=== PATIENT | female | born 1960 ===

== ENCOUNTER 2025-01-28 05:46 | Day surgery (SDC) | payer OTHER ==
[2025-01-21 12:06] LABS: HEMATOCRIT 43.3 % (36.0-45.00); HEMOGLOBIN 14.1 g/dL (12.0-15.00); MEAN CELL VOLUME 86.1 fL (80.00-100.00); MEAN CORPUSCULAR HGB CONC 32.6 g/dl (32.0-36.0); PH,URINE 7.5 (5.0-8.0); PLATELET COUNT 289 K/uL (150-450); RED BLOOD COUNT 5.03 M/uL (4.00-6.00); RED CELL DISTRIBUTION WIDTH 13.4 % (11.5-14.5); URINE APPEARANCE Clear; URINE BILIRRUBIN Negative (NEGATIVE); URINE BLOOD Negative; URINE COLOR Yellow; URINE GLUCOSE Negative (NEGATIVE); URINE KETONE Negative (NEGATIVE); URINE LEUKOCYTE Negative; URINE NITRATE Negative; URINE PROTEIN Negative (NEGATIVE); URINE UROBILINOGEN 0.2 E.U./dl
[2025-01-21 12:07] VITALS: BP 131/82
[2025-01-21 12:12] LABS: URINE BACTERIA 12.2 uL (0.0-1933); URINE RBC 6.4 uL (0.0-20.8); URINE WBC 2.4 uL (0.0-23.2)
[2025-01-21 12:32] LABS: URINE EPITHELIAL CELLS 0.7 uL (0.0-38.8)
[2025-01-21 13:00] LABS: INR 1.04; PARTIAL THROMBOPLASTIN TIME 29.9 SECONDS (22.0-34.0); PROTHROMBIN TIME 11.3 SECONDS (9.0-11.5)
[2025-01-21 13:04] LABS: BILIRUBIN TOTAL 0.65 mg/dL (0.3-1.2); CALCIUM 9.4 mg/dL (8.5-10.1); CREATININE SERUM 0.83 mg/dL (0.55-1.02); GFR 69.21; GLOBULINA 3.2 G/DL (2.4-3.5); POTASSIUM 3.64 mEq/L (3.5-5.1); TOTAL PROTEIN 7.2 gm/dL (6.4-8.2)
[~2025-01-28] VITALS: Ht 157.5 cm; Wt 91.6 kg
[~2025-01-28 05:46] MED LIST: LOSARTAN-HCTZ1 EAC1 PO
[2025-01-28] MEDS ORDERED: CEFAZOLIN SODIUM 1,000 MG VIAL ONE (09:15)
[2025-01-28] MEDS ORDERED: POVIDONE-IODINE 118 ML BOTT TOP ONE (10:40)
== END 2025-01-28 14:35 | disposition home or self-care (01) ==
LOC: O/R 05:46 → CIR.AMB 05:46
PROVIDERS: ATTEND Obstetrics & Gynecology
DX: N84.0 Polyp of corpus uteri (principal); N95.0 Postmenopausal bleeding; I10 Essential (primary) hypertension